=== PATIENT | male | born 1945 | race Hispanic/Latino ===

== ENCOUNTER 2017-10-22 10:25 | Emergency (ER) | payer MEDICARE ==
--- NOTE | 2017-10-22 11:03 | ED.PDOC ---
History of Present Illness - General Chief Complaint: Respiratory Problem Stated Complaint: Cough, congestion Time Seen by Provider: 10/22/17 10:59 Source: patient Exam Limitations: no limitations Additional Information: HE STARTED SATURDAY MORNING WITH A COUGH, MALAISE, CONGESTION, DIARRHEA, FEVER AND ABDOMINAL PAIN. HE WAS SCHEDULED FOR A COLONOSCOPY ON SATURDAY BUT GIVEN THE CIRCUMSTANCES HE CANCELLED. HE IS HERE SOMEWHAT IMPROVED. THE COUGH IS BETTER AND NOW HE IS AFEBRILE. THE DIARRHEA IS ALSO IMPROVED. - History of Present Illness Timing/Duration: other - THREE DAYS AGO Cough Quality/Degree: moderate, dry cough Possible Cause: no prior episodes Improving Factors: nothing Associated Symptoms: cough, fever/chills, nasal congestion Respiratory Risk Factors: no cause identified Allergies/Adverse Reactions: Allergies NO KNOWN ALLERGY Allergy (Verified 10/22/17 10:59) Home Medications: Ambulatory Orders Azithromycin [Zithromax Z-Brian] 1 ea PO DAILY #1 pack 10/22/17 Benzonatate Perles [Tessalon Perles] 100 mg PO TID 5 Days cap 10/22/17 Review of Systems - Review of Systems Constitutional: States: fever, malaise, weakness EENTM: States: nose congestion Respiratory: States: cough Cardiology: States: no symptoms reported Gastrointestinal/Abdominal: States: diarrhea, nausea Genitourinary: States: no symptoms reported Musculoskeletal: States: no symptoms reported Skin: States: no symptoms reported Neurological: States: no symptoms reported Endocrine: States: no symptoms reported Hematologic/Lymphatic: States: no symptoms reported Past Medical History (General) - Patient Medical History Hx Stroke: No Hx Congestive Heart Failure: No Hx Hypertension: Yes Hx Thyroid Disease: No Hx Diabetes: No - Vaccination History Hx Influenza Vaccination: No Hx Pneumococcal Vaccination: No - Social History Hx Tobacco Use: No Hx Alcohol Use: No Family Medical History - Family History Father Family History: No Known Living Status: Physical Exam - Physical Exam General Appearance: Alert, Anxious, Well Developed, Well Groomed Eye Exam: right normal, left abnormal EOM Neck: non-tender, full range of motion, supple, normal inspection, trachea midline Respiratory: lungs clear, no respiratory distress Cardiovascular/Chest: normal peripheral pulses, regular rate, rhythm, no edema, no gallop, no JVD, no murmur Gastrointestinal/Abdominal: normal bowel sounds, non tender, soft, no organomegaly, no pulsatile mass Extremity: normal range of motion, non-tender, normal inspection Neurologic: alert, normal mood/affect, oriented x 3 Skin Exam: normal color, warm/dry Lymphatic: no adenopathy Progress - Results/Orders Results/Orders: THE LAB IS REPORTED. NEGATIVE FLU SCREEN, OTHER LAB IS NORMAL. WILL DC HOME. Departure - Departure Clinical Impression: Acute bronchitis Qualifiers: Bronchitis organism: other organism Qualified Code(s): J20.8 - Acute bronchitis due to other specified organisms Time of Disposition: 12:23 Disposition: Discharge to Home or Self Care Condition: Good Departure Forms: ED Discharge - Pt. Copy, Patient Portal Self Enrollment Instructions: DI for Acute Bronchitis Prescriptions: Azithromycin [Zithromax Z-Brian] 1 ea PO DAILY #1 pack Benzonatate Perles [Tessalon Perles] 100 mg PO TID 5 Days cap Home Medications: Ambulatory Orders Azithromycin [Zithromax Z-Brian] 1 ea PO DAILY #1 pack 10/22/17 Benzonatate Perles [Tessalon Perles] 100 mg PO TID 5 Days cap 10/22/17
[2017-10-22 11:54] VITALS: BP 137/84; TEMP 99.6; O2SAT 94
== END 2017-10-22 12:40 | disposition home or self-care (01) ==
LOC: ER 10:25
DX: J20.8 Acute bronchitis due to other specified organisms (principal); I10 Essential (primary) hypertension